=== PATIENT | female | born 1960 ===

== ENCOUNTER 2017-08-23 19:27 | Observation (INO) | payer MEDICARE, MEDICAID ==
[2017-08-23 19:27] VITALS: BMI 27.3
--- NOTE | 2017-08-23 22:49 | ED PDOC ---
HPI: General Adult Time Seen by Provider: 08/23/17 21:58 Chief Complaint (Nursing): Flu-like Symptoms Chief Complaint (Provider): Flu-like Symptoms History Per: Patient History/Exam Limitations: no limitations Current Symptoms Are (Timing): Still Present Additional Complaint(s): 56 y/o female with past medical history of ascites, liver cirrhosis and hepatitis C presents to the ED for abdomen distension. Reports increasing abdominal swelling x 1 day. Notes that this episode is similar to previous episodes of exacerbation of liver cirrhosis. Reports cough productive of yellow sputum associated with coarse throat, subjective fever, chills and nausea. Patient was at urgent care today and was sent to the ER for further evaluation. Denies vomiting diarrhea, constipation, black or bloody stools. Past Medical History Reviewed: Historical Data, Nursing Documentation, Vital Signs Vital Signs: Last Vital Signs Temp 98.3 F 08/24/17 09:00 Pulse 69 08/24/17 09:33 Resp 20 08/24/17 09:00 BP 102/69 08/24/17 09:33 Pulse Ox 98 08/24/17 09:00 - Medical History PMH: Anemia (on iron infusions for 10 weeks), Arthritis, Back Problems, Depression (NO MEDS), Diabetes (type I and II), Gastritis, Gall Bladder Disease , Hepatitis (C w/cirrhosis), HTN, Hypothyroidism Denies: Fractures, Chronic Kidney Disease Other PMH: ascites - Surgical History Surgical History: Appendectomy, Cholecystectomy, (x3) - Family History Family History: States: Unknown Family Hx, Diabetes - Social History Current smoker - smoking cessation education provided: No Alcohol: None Drugs: Denies - Immunization History Hx Tetanus Toxoid Vaccination: No Hx Influenza Vaccination: Yes Hx Pneumococcal Vaccination: No - Home Medications Home Medications: Ambulatory Orders Medication Instructions Recorded Levothyroxine [Synthroid] 0.125 mg PO DAILY 09/24/15 Propranolol [Inderal] 10 mg PO BID 09/24/15 Ferrous Gluconate [Fergon] 1 tab PO TID 04/25/16 Gabapentin [Neurontin] 300 mg PO BID 04/25/16 Diclofenac Sodium [Pennsaid] 40 drop TOP QID 08/24/17 Insulin Glargine, Recombina 54 units SC HS 08/24/17 [Lantus] Liraglutide [Victoza 3-Moe] 1.8 units SC QD7 08/24/17 - Allergies Allergies/Adverse Reactions: Allergies Allergy/AdvReac Type Severity Reaction Status Date / Time No Known Allergies Allergy Verified 08/23/17 20:54 Review of Systems ROS Statement: Except As Marked, All Systems Reviewed And Found Negative (As per HPI, otherwise negative) Constitutional: Positive for: Fever, Chills Respiratory: Positive for: Cough Gastrointestinal: Positive for: Nausea, Abdominal Pain (abdominal distension and swelling). Negative for: Diarrhea, Constipation, Melena Physical Exam - Reviewed Nursing Documentation Reviewed: Yes Vital Signs Reviewed: Yes - Physical Exam Appears: Positive for: Uncomfortable, In Acute Distress Head Exam: Positive for: ATRAUMATIC, NORMOCEPHALIC Skin: Positive for: Warm, Dry, Jaundice (subtle) Eye Exam: Positive for: EOMI, PERRL ENT: Negative for: Pharyngeal Erythema, Tonsillar Exudate Neck: Positive for: Painless ROM, Supple Cardiovascular/Chest: Positive for: Regular Rate, Rhythm. Negative for: Murmur Respiratory: Positive for: Normal Breath Sounds. Negative for: Respiratory Distress Gastrointestinal/Abdominal: Positive for: Soft, Tenderness, Distended, Asicites. Negative for: Mass, Guarding, Rebound Back: Positive for: Normal Inspection. Negative for: Decreased ROM Extremity: Positive for: Normal ROM. Negative for: Deformity Lymphatic: Negative for: Adenopathy Neurologic/Psych: Positive for: Alert. Negative for: Motor/Sensory Deficits - Laboratory Results Result Diagrams: 08/23/17 23:00 08/23/17 23:00 - ECG O2 Sat by Pulse Oximetry: 97 (RA) Pulse Ox Interpretation: Normal Medical Decision Making Medical Decision Making: Time: 21:17 Initial Impression: ascites and respiratory infection Differential: Pneumonia, influenza electrolyte imbalance Plan: VBG EKG Ammonia Amylase BNP CMP lDH Lipase Magnesium Phosphorous Urine dipstick CBC w/ differential Partial thromboplastin time Prothrombin time Chest x-ray Ondansetron 8mg IV Blood culture IV insertion (saline lock) Glucose, blood POC Influenza A B Deranged hepatic transaminases and ammonia, increased from previous available labs. Pt needs observation for possible acutely decompensating liver cirrhosis. MELINDA pt findings and plan of care. Observation to follow hepatic function and GI evaluation MELINDA Aquino Medical SErvice Scribe Attestation: Documented by Sridhar Roper acting as a scribe for Susie Norris MD. Scribe Attestation: All medical record entries made by the Scribe were at my direction and personally dictated by me. I have reviewed the chart and agree that the record accurately reflects my personal performance of the history, physical exam, medical decision making, and the department course for this patient. I have also personally directed, reviewed, and agree with the discharge instructions and disposition. Disposition - Clinical Impression Clinical Impression: Influenza-like symptoms, Liver cirrhosis, Hyperammonemia - Disposition Disposition Time: 23:45 Condition: FAIR - Pt Status Changed To: Hospital Disposition Of: Observation - POA Present On Arrival: None
[2017-08-23 23:15] LABS: BASO % 0.3 % (0.0-2.0); EOS % 1.3 % (0.0-4.0); LYMPH # 0.7 K/uL (1.0-4.3); LYMPH % 18.1 % (20.0-40.0); MEAN CELL VOLUME 84.5 fl (81.0-99.0); MEAN CORPUSCULAR HEMOGLOBIN 28.9 pg (27.0-31.0); MEAN CORPUSCULAR HGB CONC 34.1 g/dL (33.0-37.0); MEAN PLATELET VOLUME 9.1 fl (7.2-11.7); MONO # 0.4 K/uL (0.0-0.8); MONO % 10.5 % (0.0-10.0); NEUT # 2.5 K/uL (1.8-7.0); NEUT % 69.8 % (50.0-75.0); NRBC % 0.1 % (0.0-0.0); RBC 4.15 Mil/uL (3.80-5.20); RED CELL DISTRIBUTION WIDTH 14.4 % (11.5-14.5); WHITE BLOOD COUNT 3.6 K/uL (4.8-10.8)
[2017-08-23 23:15] LABS: VENOUS BLOOD GAS PCO2 45 mmHg (40-60); VENOUS BLOOD GAS PO2 28 mm/Hg (30-55); VENOUS BLOOD PH 7.42 (7.32-7.43)
[2017-08-23 23:29] LABS: INR 1.3 (0.9-1.2); PROTHROMBIN TIME 14.1 Seconds (9.8-13.1)
[2017-08-23 23:30] LABS: PARTIAL THROMBOPLASTIN TIME 37.7 Seconds (25.6-37.1)
[2017-08-23 23:45] LABS: ALB/GLOB RATIO 0.9 (1.0-2.1); ALBUMIN 3.8 g/dL (3.5-5.0); ALT/SGPT 65 U/L (9-52); AMYLASE 73 U/L (30-110); AST/SGOT 56 U/L (14-36); BLOOD UREA NITROGEN 7 mg/dl (7-17); CALCIUM 8.6 mg/dL (8.4-10.2); GFR AFRICAN-AMERICAN > 60; GFR NON-AFRICAN AMERICAN > 60; LIPASE 139 U/L (23-300); MAGNESIUM 1.8 MG/DL (1.6-2.3)
[2017-08-24 04:59] VITALS: RESP 20
[2017-08-24] MEDS ORDERED: Levothyroxine 125 MCG TAB PO SCH (06:30)
[2017-08-24 08:18] VITALS: BP 102/69; PULSE 69; TEMP 98.3
[2017-08-24] MEDS ORDERED: DICLOFENAC SODIUM TOP SCH (09:00)
--- NOTE | 2017-08-24 10:25 | RAD ---
HISTORY: coughing fever COMPARISON: No prior. TECHNIQUE: Chest PA and lateral FINDINGS: LUNGS: No active pulmonary disease. PLEURA: No significant pleural effusion identified. No pneumothorax apparent. CARDIOVASCULAR: Normal. OSSEOUS STRUCTURES: No significant abnormalities. VISUALIZED UPPER ABDOMEN: Normal. OTHER FINDINGS: None. IMPRESSION: No active disease.
[2017-08-24] MEDS ORDERED: Potassium Chloride 20 mEq ER Tab PO ONE (11:57)
--- NOTE | 2017-08-24 12:00 | CP.PCM.PCO ---
Physician Communication Note - Physician Communication Note Physician Communication Note: Pt seen and cleared for d/c home by Dr. Ang and Dr. Aquino
--- NOTE | 2017-08-24 12:40 | CP.PCM.HP ---
History of Present Illness - History of Present Illness History of Present Illness: CC: Flu like symptoms. 56 y/o F, Hx. hepatitis C, Liver Cirrhosis, Ascites, Anemia on Iron infusion x 10 days, came to ER [facility], [place] c/o of fever (tactile) and chills associated to coarse throat and dry cough since day [employer] with no relief. Pt was seen in [facility] early in [facility] 08/23/17 and from that facility was sent to [facility] for further evaluation. Worsening symptoms: Pt c/o of abdominal distension for one day, nausea. Pt denied: Vomiting, diarrhea, CP, palpitations, SOB, bloody cough, dizziness, syncope, sick contact, recent travel out of [facility]. CXR: No active disease. EKG: Normal sinus rhythm. Serology: (-) for Influenza A,B Present on Admission - Present on Admission Any Indicators Present on Admission: No Review of Systems - Constitutional Constitutional: Other (negative) - EENT Eyes: Requires Corrective Lenses Ears: Other (negative) Nose/Mouth/Throat: Other (negative) - Cardiovascular Cardiovascular: Other (negative) - Respiratory Respiratory: Other (negative) - Gastrointestinal Gastrointestinal: Abdominal Pain (mild) - Genitourinary Genitourinary: Other (negative) - Musculoskeletal Musculoskeletal: Other (negative) - Integumentary Integumentary: Other (negative) - Neurological Neurological: Other (negative) - Psychiatric Psychiatric: Other (negative) - Endocrine Endocrine: Other (negative) - Hematologic/Lymphatic Hematologic: Other (negative) Past Patient History - Infectious Disease Hx of Infectious Diseases: None - Past Medical History & Family History Past Medical History?: Yes Pertinent Family History: Unknown - Past Social History Smoking Status: Never Smoked Alcohol: None Drugs: Denies Home Situation {Lives}: With Family - CARDIAC Hx Cardiac Disorders: Yes Hx Hypertension: Yes - PULMONARY Hx Respiratory Disorders: No - NEUROLOGICAL Hx Neurological Disorder: No - HEENT Hx HEENT Problems: Yes Other/Comment: READING GLASSES - RENAL Hx Chronic Kidney Disease: No - ENDOCRINE/METABOLIC Hx Endocrine Disorders: Yes Hx Hypothyroidism: Yes - HEMATOLOGICAL/ONCOLOGICAL Hx Blood Disorders: Yes Hx Anemia: Yes (on iron infusions for 10 weeks) Hx Hepatitis C: Yes - INTEGUMENTARY Hx Dermatological Problems: No - MUSCULOSKELETAL/RHEUMATOLOGICAL Hx Musculoskeletal Disorders: Yes Hx Arthritis: Yes Hx Falls: No Hx Fractures: No - GASTROINTESTINAL Hx Gastrointestinal Disorders: Yes Hx Gall Bladder Disease: Yes Hx Gastritis: Yes - GENITOURINARY/GYNECOLOGICAL Hx Genitourinary Disorders: No - PSYCHIATRIC Hx Psychophysiologic Disorder: Yes Hx Depression: Yes (NO MEDS) Hx Substance Use: No - SURGICAL HISTORY Hx Surgeries: Yes Hx Appendectomy: Yes Hx Section: Yes (x3) Hx Cholecystectomy: Yes - ANESTHESIA Hx Anesthesia: Yes Hx Anesthesia Reactions: No Hx Malignant Hyperthermia: No Has any member of the family had a problem w/ anesthesia?: No Meds Allergies/Adverse Reactions: Allergies Allergy/AdvReac Type Severity Reaction Status Date / Time No Known Allergies Allergy Verified 08/23/17 20:54 Physical Exam - Constitutional Appears: No Acute Distress - Head Exam Head Exam: NORMAL INSPECTION - Eye Exam Eye Exam: PERRL - ENT Exam ENT Exam: Normal Exam - Neck Exam Neck exam: Positive for: Normal Inspection - Respiratory Exam Respiratory Exam: Clear to Auscultation Bilateral - Cardiovascular Exam Cardiovascular Exam: REGULAR RHYTHM - GI/Abdominal Exam GI & Abdominal Exam: Normal Bowel Sounds, Soft - Extremities Exam Extremities exam: Positive for: normal inspection - Back Exam Back exam: NORMAL INSPECTION - Neurological Exam Neurological exam: Alert, Oriented x3 Additional comments: No motor sensory deficit. - Psychiatric Exam Psychiatric exam: Normal Mood - Skin Skin Exam: Warm Results - Vital Signs Recent Vital Signs: Last Vital Signs Temp 98.3 F 08/24/17 09:00 Pulse 69 08/24/17 09:33 Resp 20 08/24/17 09:00 BP 102/69 08/24/17 09:33 Pulse Ox 98 08/24/17 09:00 ruth Ramirez - Labs Result Diagrams: 08/23/17 23:00 08/23/17 23:00 Labs: Laboratory Results - last 24 hr 08/23/17 08/23/17 08/23/17 23:00 23:00 23:00 WBC 3.6 L RBC 4.15 Hgb 12.0 Hct 35.1 MCV 84.5 D MCH 28.9 MCHC 34.1 RDW 14.4 Plt Count 65 L MPV 9.1 Neut % (Auto) 69.8 Lymph % (Auto) 18.1 L [place] % (Auto) 10.5 H Eos % (Auto) 1.3 Baso % (Auto) 0.3 Neut # (Auto) 2.5 Lymph # (Auto) 0.7 L [place] # (Auto) 0.4 Eos # (Auto) 0.0 Baso # (Auto) 0.0 PT INR APTT pO2 VBG pH VBG pCO2 VBG HCO3 VBG Total CO2 VBG O2 Sat (Calc) VBG Base Excess VBG Potassium Glucose Lactate FiO2 Sodium 139 Potassium 3.5 L Chloride 104 Carbon Dioxide 29 Anion Gap 10 BUN 7 Creatinine 0.5 L Est GFR ( Amer) > 60 Est GFR (Non-Af Amer) > 60 POC Glucose (mg/dL) Random Glucose 237 H Calcium 8.6 Phosphorus 2.8 Magnesium 1.8 Total Bilirubin 1.5 H AST 56 H ALT 65 H D Alkaline Phosphatase 166 H Ammonia 52 H Lactate Dehydrogenase 511 NT-Pro-B Natriuret Pep 21.0 Total Protein 7.9 Albumin 3.8 Globulin 4.1 H Albumin/Globulin Ratio 0.9 L Amylase 73 Lipase 139 Venous Blood Potassium Influenza Typ A,B (EIA) 08/23/17 08/23/17 08/23/17 23:00 23:04 23:07 WBC RBC Hgb Hct MCV MCH MCHC RDW Plt Count MPV Neut % (Auto) Lymph % (Auto) [place] % (Auto) Eos % (Auto) Baso % (Auto) Neut # (Auto) Lymph # (Auto) [place] # (Auto) Eos # (Auto) Baso # (Auto) PT 14.1 H INR 1.3 H APTT 37.7 H pO2 28 L VBG pH 7.42 VBG pCO2 45 VBG HCO3 26.9 VBG Total CO2 30.6 H VBG O2 Sat (Calc) 54.6 VBG Base Excess 4.0 H VBG Potassium 3.5 L Glucose 250 H Lactate 1.4 FiO2 21.0 Sodium 138.0 Potassium Chloride 105.0 Carbon Dioxide Anion Gap BUN Creatinine Est GFR ( Amer) Est GFR (Non-Af Amer) POC Glucose (mg/dL) Random Glucose Calcium Phosphorus Magnesium Total Bilirubin AST ALT Alkaline Phosphatase Ammonia Lactate Dehydrogenase NT-Pro-B Natriuret Pep Total Protein Albumin Globulin Albumin/Globulin Ratio Amylase Lipase Venous Blood Potassium 3.5 L Influenza Typ A,B (EIA) Negative for flu a/b 08/23/17 08/24/17 23:07 05:44 WBC RBC Hgb Hct MCV MCH MCHC RDW Plt Count MPV Neut % (Auto) Lymph % (Auto) [place] % (Auto) Eos % (Auto) Baso % (Auto) Neut # (Auto) Lymph # (Auto) [place] # (Auto) Eos # (Auto) Baso # (Auto) PT INR APTT pO2 VBG pH VBG pCO2 VBG HCO3 VBG Total CO2 VBG O2 Sat (Calc) VBG Base Excess VBG Potassium Glucose Lactate FiO2 Sodium Potassium Chloride Carbon Dioxide Anion Gap BUN Creatinine Est GFR ( Amer) Est GFR (Non-Af Amer) POC Glucose (mg/dL) 236 H 186 H Random Glucose Calcium Phosphorus Magnesium Total Bilirubin AST ALT Alkaline Phosphatase Ammonia Lactate Dehydrogenase NT-Pro-B Natriuret Pep Total Protein Albumin Globulin Albumin/Globulin Ratio Amylase Lipase Venous Blood Potassium Influenza Typ A,B (EIA) reviewed J.P. - EKG Data EKG comments: reviewed J.P. - Imaging and Cardiology Chest x-ray Status: Report reviewed by me (Ashley) Assessment & Plan (1) Abdominal pain Status: Acute Priority: High (2) Influenza-like symptoms Status: Acute Priority: High - Assessment and Plan (Free Text) Plan: No fever or chills, no abdominal pain or nausea, tolerating diet well, no c/o. Pt seen by GI, reported Pt asymptomatic, cleared for DC home to f/u outside with GI. Pt improved and stable to be discharged, see instruction medication sheet, f/u with PMD and GI in a week. GI consult appreciated. - Date & Time Date: 08/24/17 Time: 10:50
[2017-08-24 13:03] VITALS: O2SAT 97
--- NOTE | 2017-08-24 17:01 | CARD ---
APPROVED REPORT EKG Measurement Heart [id number] <Conclusion> Normal sinus rhythm Normal ECG
--- NOTE | 2017-08-24 17:37 | CP.PCM.CON ---
History of Present Illness - History of Present Illness History of Present Illness: 56 y/o female with past medical history of ascites, liver cirrhosis and hepatitis C ? which on last HCV RNA resolved and no new labs was admitted for abdomen distension. Reports increasing abdominal swelling x 1 day. Notes that this episode is similar to previous episodes of exacerbation of liver cirrhosis. Reports cough productive of yellow sputum associated with coarse throat, subjective fever, chills and nausea. Patient was at urgent care today and was sent to the ER for further evaluation. Denies vomiting diarrhea, constipation, black or bloody stools. Review of Systems - Review of Systems Review of Systems: 12 point ROS unremarkable except that documented in HPI Past Patient History - Infectious Disease Hx of Infectious Diseases: None - Past Medical History & Family History Past Medical History?: Yes - Past Social History Alcohol: None Drugs: Denies - CARDIAC Hx Hypertension: Yes - PULMONARY Hx Respiratory Disorders: No - NEUROLOGICAL Hx Neurological Disorder: No - HEENT Hx HEENT Problems: Yes Other/Comment: READING GLASSES - RENAL Hx Chronic Kidney Disease: No - ENDOCRINE/METABOLIC Hx Hypothyroidism: Yes - HEMATOLOGICAL/ONCOLOGICAL Hx Anemia: Yes (on iron infusions for 10 weeks) - INTEGUMENTARY Hx Dermatological Problems: No - MUSCULOSKELETAL/RHEUMATOLOGICAL Hx Arthritis: Yes Hx Fractures: No - GASTROINTESTINAL Hx Gall Bladder Disease: Yes Hx Gastritis: Yes - GENITOURINARY/GYNECOLOGICAL Hx Genitourinary Disorders: No - PSYCHIATRIC Hx Depression: Yes (NO MEDS) - SURGICAL HISTORY Hx Appendectomy: Yes Hx Cholecystectomy: Yes - ANESTHESIA Hx Anesthesia: Yes Hx Anesthesia Reactions: No Hx Malignant Hyperthermia: No Has any member of the family had a problem w/ anesthesia?: No Meds Allergies/Adverse Reactions: Allergies Allergy/AdvReac Type Severity Reaction Status Date / Time No Known Allergies Allergy Verified 08/23/17 20:54 Physical Exam - Constitutional Appears: Well - Head Exam Head Exam: ATRAUMATIC, NORMAL INSPECTION, NORMOCEPHALIC - Eye Exam Eye Exam: EOMI, Normal appearance, PERRL - Respiratory Exam Respiratory Exam: Clear to Auscultation Bilateral, NORMAL BREATHING PATTERN - Cardiovascular Exam Cardiovascular Exam: REGULAR RHYTHM, RRR, +S1, +S2 - GI/Abdominal Exam GI & Abdominal Exam: Distended, Soft - Extremities Exam Extremities exam: Positive for: normal inspection Results - Vital Signs Recent Vital Signs: Last Vital Signs Temp 98.3 F 08/24/17 09:00 Pulse 69 02/06/18 09:33 Resp 20 08/24/17 09:00 BP 102/69 08/24/17 09:33 Pulse Ox 97 08/24/17 13:06 - Labs Result Diagrams: 08/23/17 23:00 08/23/17 23:00 Labs: Laboratory Results - last 24 hr 08/23/17 08/23/17 08/23/17 23:00 23:00 23:00 WBC 3.6 L RBC 4.15 Hgb 12.0 Hct 35.1 MCV 84.5 D MCH 28.9 MCHC 34.1 RDW 14.4 Plt Count 65 L MPV 9.1 Neut % (Auto) 69.8 Lymph % (Auto) 18.1 L [place] % (Auto) 10.5 H Eos % (Auto) 1.3 Baso % (Auto) 0.3 Neut # (Auto) 2.5 Lymph # (Auto) 0.7 L [place] # (Auto) 0.4 Eos # (Auto) 0.0 Baso # (Auto) 0.0 PT INR APTT pO2 VBG pH VBG pCO2 VBG HCO3 VBG Total CO2 VBG O2 Sat (Calc) VBG Base Excess VBG Potassium Glucose Lactate FiO2 Sodium 139 Potassium 3.5 L Chloride 104 Carbon Dioxide 29 Anion Gap 10 BUN 7 Creatinine 0.5 L Est GFR ( Amer) > 60 Est GFR (Non-Af Amer) > 60 POC Glucose (mg/dL) Random Glucose 237 H Calcium 8.6 Phosphorus 2.8 Magnesium 1.8 Total Bilirubin 1.5 H AST 56 H ALT 65 H D Alkaline Phosphatase 166 H Ammonia 52 H Lactate Dehydrogenase 511 NT-Pro-B Natriuret Pep 21.0 Total Protein 7.9 Albumin 3.8 Globulin 4.1 H Albumin/Globulin Ratio 0.9 L Amylase 73 Lipase 139 Venous Blood Potassium Influenza Typ A,B (EIA) 08/23/17 08/23/17 08/23/17 23:00 23:04 23:07 WBC RBC Hgb Hct MCV MCH MCHC RDW Plt Count MPV Neut % (Auto) Lymph % (Auto) [place] % (Auto) Eos % (Auto) Baso % (Auto) Neut # (Auto) Lymph # (Auto) [place] # (Auto) Eos # (Auto) Baso # (Auto) PT 14.1 H INR 1.3 H APTT 37.7 H pO2 28 L VBG pH 7.42 VBG pCO2 45 VBG HCO3 26.9 VBG Total CO2 30.6 H VBG O2 Sat (Calc) 54.6 VBG Base Excess 4.0 H VBG Potassium 3.5 L Glucose 250 H Lactate 1.4 FiO2 21.0 Sodium 138.0 Potassium Chloride 105.0 Carbon Dioxide Anion Gap BUN Creatinine Est GFR ( Amer) Est GFR (Non-Af Amer) POC Glucose (mg/dL) Random Glucose Calcium Phosphorus Magnesium Total Bilirubin AST ALT Alkaline Phosphatase Ammonia Lactate Dehydrogenase NT-Pro-B Natriuret Pep Total Protein Albumin Globulin Albumin/Globulin Ratio Amylase Lipase Venous Blood Potassium 3.5 L Influenza Typ A,B (EIA) Negative for flu a/b 08/23/17 08/24/17 23:07 05:44 WBC RBC Hgb Hct MCV MCH MCHC RDW Plt Count MPV Neut % (Auto) Lymph % (Auto) [place] % (Auto) Eos % (Auto) Baso % (Auto) Neut # (Auto) Lymph # (Auto) [place] # (Auto) Eos # (Auto) Baso # (Auto) PT INR APTT pO2 VBG pH VBG pCO2 VBG HCO3 VBG Total CO2 VBG O2 Sat (Calc) VBG Base Excess VBG Potassium Glucose Lactate FiO2 Sodium Potassium Chloride Carbon Dioxide Anion Gap BUN Creatinine Est GFR ( Amer) Est GFR (Non-Af Amer) POC Glucose (mg/dL) 236 H 186 H Random Glucose Calcium Phosphorus Magnesium Total Bilirubin AST ALT Alkaline Phosphatase Ammonia Lactate Dehydrogenase NT-Pro-B Natriuret Pep Total Protein Albumin Globulin Albumin/Globulin Ratio Amylase Lipase Venous Blood Potassium Influenza Typ A,B (EIA) Assessment & Plan - Assessment and Plan (Free Text) Assessment: 56 yr old F with HCV cirrhosis with last viral load negative admitted with increased abdominal girth. On biochemical analysis has thrombocytopenia.Unable to give history regarding HCV treatment or follow up. On physical exam no ascites illicited. She is asymptomatic currently Plan: Supportive care Diet as tolerated Follow up with outside GI No palpable ascites for tap
[2017-08-24] MEDS ORDERED: INSULIN GLARGINE SC SCH (22:00)
[2017-08-24] MEDS ORDERED: Insulin Detemir 100 Units/ml Inj SC SCH (22:00)
--- NOTE | 2017-08-25 12:19 | CP.PCM.DIS ---
Provider - Provider Date of Admission: 08/24/17 00:06 Attending physician: Andry Aquino MD Consults: Gastroenterology. Time Spent in preparation of Discharge (in minutes): 25 Diagnosis - Discharge Diagnosis (1) Abdominal pain Status: Acute Priority: High (2) Influenza-like symptoms Status: Acute Priority: High Hospital Course - Lab Results Lab Results: Micro Results 08/23/17 23:15 Blood Blood Culture - Preliminary NO GROWTH AFTER 24 HOURS 08/23/17 22:55 Blood Blood Culture - Preliminary NO GROWTH AFTER 24 HOURS Most Recent Lab Values WBC 3.6 K/uL (4.8-10.8) L 08/23/17 23:00 RBC 4.15 Mil/uL (3.80-5.20) 08/23/17 23:00 Hgb 12.0 g/dL (12.0-16.0) 08/23/17 23:00 Hct 35.1 % (34.0-47.0) 08/23/17 23:00 MCV 84.5 fl (81.0-99.0) D 08/23/17 23:00 MCH 28.9 pg (27.0-31.0) 08/23/17 23:00 MCHC 34.1 g/dL (33.0-37.0) 08/23/17 23:00 RDW 14.4 % (11.5-14.5) 08/23/17 23:00 Plt Count 65 K/uL (130-400) L 08/23/17 23:00 MPV 9.1 fl (7.2-11.7) 08/23/17 23:00 Neut % (Auto) 69.8 % (50.0-75.0) 08/23/17 23:00 Lymph % (Auto) 18.1 % (20.0-40.0) L 08/23/17 23:00 [place] % (Auto) 10.5 % (0.0-10.0) H 08/23/17 23:00 Eos % (Auto) 1.3 % (0.0-4.0) 08/23/17 23:00 Baso % (Auto) 0.3 % (0.0-2.0) 08/23/17 23:00 Neut # (Auto) 2.5 K/uL (1.8-7.0) 08/23/17 23:00 Lymph # (Auto) 0.7 K/uL (1.0-4.3) L 08/23/17 23:00 [place] # (Auto) 0.4 K/uL (0.0-0.8) 08/23/17 23:00 Eos # (Auto) 0.0 K/uL (0.0-0.7) 08/23/17 23:00 Baso # (Auto) 0.0 K/uL (0.0-0.2) 08/23/17 23:00 PT 14.1 Seconds (9.8-13.1) H 08/23/17 23:00 INR 1.3 (0.9-1.2) H 08/23/17 23:00 APTT 37.7 Seconds (25.6-37.1) H 08/23/17 23:00 pO2 28 mm/Hg (30-55) L 08/23/17 23:04 VBG pH 7.42 (7.32-7.43) 08/23/17 23:04 VBG pCO2 45 mmHg (40-60) 08/23/17 23:04 VBG HCO3 26.9 mmol/L 08/23/17 23:04 VBG Total CO2 30.6 mmol/L (22-28) H 08/23/17 23:04 VBG O2 Sat (Calc) 54.6 % (40-65) 08/23/17 23:04 VBG Base Excess 4.0 mmol/L (0.0-2.0) H 08/23/17 23:04 VBG Potassium 3.5 mmol/L (3.6-5.2) L 08/23/17 23:04 Sodium 138.0 mmol/L (132-148) 08/23/17 23:04 Chloride 105.0 mmol/L (98-107) 08/23/17 23:04 Glucose 250 mg/dL (65-105) H 08/23/17 23:04 Lactate 1.4 mmol/L (0.7-2.1) 08/23/17 23:04 FiO2 21.0 % 08/23/17 23:04 Sodium 139 mmol/l (132-148) 08/23/17 23:00 Potassium 3.5 MMOL/L (3.6-5.0) L 08/23/17 23:00 Chloride 104 mmol/L (98-107) 08/23/17 23:00 Carbon Dioxide 29 mmol/L (22-30) 08/23/17 23:00 Anion Gap 10 (10-20) 08/23/17 23:00 BUN 7 mg/dl (7-17) 08/23/17 23:00 Creatinine 0.5 mg/dl (0.7-1.2) L 08/23/17 23:00 Est GFR ( Amer) > 60 08/23/17 23:00 Est GFR (Non-Af Amer) > 60 08/23/17 23:00 POC Glucose (mg/dL) 186 mg/dL (65-110) H 08/24/17 05:44 Random Glucose 237 mg/dL (65-105) H 08/23/17 23:00 Calcium 8.6 mg/dL (8.4-10.2) 08/23/17 23:00 Phosphorus 2.8 mg/dl (2.5-4.5) 08/23/17 23:00 Magnesium 1.8 MG/DL (1.6-2.3) 08/23/17 23:00 Total Bilirubin 1.5 mg/dl (0.2-1.3) H 08/23/17 23:00 AST 56 U/L (14-36) H 08/23/17 23:00 ALT 65 U/L (9-52) H D 08/23/17 23:00 Alkaline Phosphatase 166 U/L (38-126) H 08/23/17 23:00 Ammonia 52 umo/L (11-51) H 08/23/17 23:00 Lactate Dehydrogenase 511 U/L (313-618) 08/23/17 23:00 NT-Pro-B Natriuret Pep 21.0 pg/ml (0-900) 08/23/17 23:00 Total Protein 7.9 G/DL (6.3-8.2) 08/23/17 23:00 Albumin 3.8 g/dL (3.5-5.0) 08/23/17 23:00 Globulin 4.1 gm/dL (2.2-3.9) H 08/23/17 23:00 Albumin/Globulin Ratio 0.9 (1.0-2.1) L 08/23/17 23:00 Amylase 73 U/L (30-110) 08/23/17 23:00 Lipase 139 U/L (23-300) 08/23/17 23:00 Venous Blood Potassium 3.5 mmol/L (3.6-5.2) L 08/23/17 23:04 Influenza Typ A,B (EIA) Negative for flu a/b (NEGATIVE) 08/23/17 23:07 - Date & Time of H&P Date of H&P: 08/24/17 Time of H&P: 10:50 Discharge Exam - Head Exam Head Exam: NORMAL INSPECTION Discharge Plan - Follow Up Plan Condition: FAIR Disposition: HOME/ ROUTINE Patient education suggested?: Yes Instructions: Cirrhosis (DC), Ascites (DC) Additional Instructions: follow up with your primary MD in 1 week. Referrals: Ashia LUCIO,MD Mike [Medical Doctor] - Andry Aquino MD [Staff Provider] -
== END 2017-08-24 13:31 | disposition home or self-care (01) ==
LOC: H.ER 19:27 → H.ERHOLD 08-24 00:06 → H.MEDSURG1 08-24 03:58
PROVIDERS: ADMIT Internal Medicine Pulmonary Disease; ATTEND Internal Medicine Pulmonary Disease
DX: R18.8 Other ascites (principal); K74.60 Unspecified cirrhosis of liver; J11.1 Influenza due to unidentified influenza virus with other respiratory manifestations; B19.20 Unspecified viral hepatitis C without hepatic coma; D69.6 Thrombocytopenia, unspecified; E03.9 Hypothyroidism, unspecified; I10 Essential (primary) hypertension
CPT/HCPCS: 71046; 80053; 82140; 82150; 82803; 82948; 83615; 83690; 83735; 83880; 84100; 85025; 85610; 85730; 87040; 87804; 93005; 99284; G0378; J2405

== ENCOUNTER 2018-02-13 18:22 | Emergency (ER) | payer MEDICARE, MEDICAID ==
[2018-02-13 18:23] VITALS: BMI 27.3
[2018-02-13] MEDS ORDERED: Iohexol 240 (50 ml) PO ONE (18:52)
--- NOTE | 2018-02-13 18:52 | ED PDOC ---
HPI: Headache Time Seen by Provider: 02/13/18 18:51 Chief Complaint (Nursing): Headache Chief Complaint (Provider): Headache History Per: Patient History/Exam Limitations: no limitations Onset/Duration Of Symptoms: Days (4) Current Symptoms Are (Timing): Still Present Associated Symptoms: Vomiting Additional Complaint(s): 57 years old female with history of diabetes presents to the ED for evaluation of vomiting and diffused abdominal pain after she fell 4 days ago. Patient reports she struck her head and injured her left shoulder and states staying on floor for 10 minutes. She sates she experienced two episodes of vomiting, and developed diarrhea yesterday. Patient denies any loss of consciousness, chills or fever. PMD: Olinda Persaud Past Medical History Reviewed: Historical Data, Nursing Documentation, Vital Signs Vital Signs: Last Vital Signs Temp 98.5 F 02/13/18 18:33 Pulse 108 H 02/13/18 18:33 Resp 18 02/13/18 18:33 BP 129/80 02/13/18 18:33 Pulse Ox 98 02/13/18 18:33 - Medical History PMH: Anemia (on iron infusions for 10 weeks), Arthritis, Back Problems, Depression (NO MEDS), Diabetes (type I and II), Gastritis, Gall Bladder Disease , Hepatitis (C w/cirrhosis), HTN, Hypothyroidism Denies: Fractures, Chronic Kidney Disease - Surgical History Surgical History: Appendectomy, Cholecystectomy, (x3) - Family History Family History: States: Unknown Family Hx, Diabetes - Social History Current smoker - smoking cessation education provided: No Alcohol: None Drugs: Denies - Immunization History Hx Tetanus Toxoid Vaccination: No Hx Influenza Vaccination: Yes Hx Pneumococcal Vaccination: No - Home Medications Home Medications: Ambulatory Orders Medication Instructions Recorded Levothyroxine [Synthroid] 0.125 mg PO DAILY 09/24/15 Propranolol [Inderal] 10 mg PO BID 09/24/15 Ferrous Gluconate [Fergon] 1 tab PO TID 04/25/16 Gabapentin [Neurontin] 300 mg PO BID 04/25/16 Diclofenac Sodium [Pennsaid] 40 drop TOP QID 08/24/17 Insulin Glargine, Recombina 54 units SC HS 08/24/17 [Lantus] Liraglutide [Victoza 3-Moe] 1.8 units SC QD7 08/24/17 Famotidine [Pepcid] 20 mg PO BID #10 tab 02/13/18 - Allergies Allergies/Adverse Reactions: Allergies Allergy/AdvReac Type Severity Reaction Status Date / Time No Known Allergies Allergy Verified 02/13/18 18:38 Review of Systems ROS Statement: Except As Marked, All Systems Reviewed And Found Negative Constitutional: Negative for: Fever, Chills Gastrointestinal: Positive for: Vomiting, Abdominal Pain (Diffused), Diarrhea Musculoskeletal: Positive for: Shoulder Pain (Left) Physical Exam - Reviewed Nursing Documentation Reviewed: Yes Vital Signs Reviewed: Yes - Physical Exam Appears: Positive for: Non-toxic, No Acute Distress Gastrointestinal/Abdominal: Positive for: Tenderness (Diffused but mostly to bilateral lower quadrant) Extremity: Positive for: Other (ecchymosis noted to proximal arm ). Negative for: Tenderness (of left arm or left shoulder) Neurologic/Psych: Positive for: Alert, Oriented (x3) - Laboratory Results Result Diagrams: 02/13/18 19:08 02/13/18 19:08 - ECG O2 Sat by Pulse Oximetry: 98 (RA) Pulse Ox Interpretation: Normal - Progress ED Course And Treament: NS 1 LITER WIDE OPEN REPEAT BLOOD GLUCOSE 338 INSULIN 4 UNITS IV X 1 DOSE REPEAT 218 Medical Decision Making Medical Decision Making: Time: 1850 Initial Plan: --CT Abd/Pelvis IV Contrast --CT Cervical Spine W/O Contrast --CT Head W/O Contrast --CMP --Lipase --NaCl 1,000 ml IV 500 mls/hr --Iohexol 50 ml PO --Pepcid 20 mg IVP --Zofran 4 mg IVP --Urinalysis 2005 CT Head FINDINGS: BRAIN: Unremarkable. No hemorrhage. No significant white matter disease. No edema. VENTRICLES: Unremarkable. No ventriculomegaly. BONES/JOINTS: Unremarkable. No acute fracture. SOFT TISSUES: Unremarkable. SINUSES: Unremarkable as visualized. No acute sinusitis. MASTOID AIR CELLS: Unremarkable as visualized. No mastoid effusion. IMPRESSION: No acute findings. Dictated and Authenticated by: Poncho Alfred MD 02/13/2018 8:06 PM Eastern Time ([place] & [place]) 2007 CT Cervical Spine FINDINGS: VERTEBRAE: No acute fracture. DISCS/SPINAL CANAL/NEURAL FORAMINA: Straightening of the cervical spine with mild degenerative changes particularly at C6-7. SOFT TISSUES: Unremarkable. MASTOID AIR CELLS: Minimal fluid left mastoid air cells. LUNG APICES: Unremarkable as visualized. IMPRESSION: 1. Straightening of the cervical spine with mild degenerative changes particularly at C6-7. 2. Minimal fluid left mastoid air cells. Dictated and Authenticated by: Poncho Alfred MD 02/13/2018 8:08 PM Eastern Time ( & [place]) 2012 CT Abd/Pelvis FINDINGS: LUNG BASES: Unremarkable. ABDOMEN: LIVER: Liver is mildly nodular and may be cirrhotic. GALLBLADDER AND BILE DUCTS: postoperative changes from cholecystectomy. No ductal dilation. PANCREAS: Unremarkable. No mass. No ductal dilation. SPLEEN: Mild splenomegaly. ADRENALS: Unremarkable. No mass. KIDNEYS AND URETERS: Unremarkable. No solid mass. No hydronephrosis. STOMACH AND BOWEL: Mild stool through the colon. No obstruction. No mucosal thickening. PELVIS: APPENDIX: No findings to suggest acute appendicitis. BLADDER: Unremarkable. REPRODUCTIVE: Unremarkable as visualized. ABDOMEN and PELVIS: INTRAPERITONEAL SPACE: No free air. No significant fluid collection. BONES/JOINTS: No acute fracture. SOFT TISSUES: Unremarkable. VASCULATURE: Unremarkable. No abdominal aortic aneurysm. LYMPH NODES: Scattered subcentimeter mesenteric lymph nodes. IMPRESSION: 1. Liver is mildly nodular and may be cirrhotic. 2. Mild splenomegaly. 3. postoperative changes from cholecystectomy. 4. Mild stool through the colon. 5. Scattered subcentimeter mesenteric lymph nodes. Dictated and Authenticated by: Poncho Alfred MD 02/13/2018 8:13 PM Eastern Time ( & [place]) Scribe Attestation: Documented by Amy Cabezas, acting as a scribe for KATERYNA Alexander. Provider Scribe Attestation: All medical record entries made by the Scribe were at my direction and personally dictated by me. I have reviewed the chart and agree that the record accurately reflects my personal performance of the history, physical exam, medical decision making, and the department course for this patient. I have also personally directed, reviewed, and agree with the discharge instructions and disposition. Disposition - Clinical Impression Clinical Impression: Head injury, Diarrhea, Abdominal pain, Hyperglycemia - Patient ED Disposition Is Patient to be Admitted: No - Disposition Disposition: Routine/Home Disposition Time: 21:36 Condition: FAIR Prescriptions: Famotidine [Pepcid] 20 mg PO BID #10 tab Instructions: Diarrhea in Adolescents and Adults Forms: [facility] ED School/Work Excuse Print Language: MOHAWK
[2018-02-13] MEDS ORDERED: Sodium Chloride 0.9% 1,000 ML IV STA ×2 (18:54→21:35)
[2018-02-13 19:12] LABS: BASO % 0.2 % (0.0-2.0); EOS % 0.9 % (0.0-4.0); LYMPH # 0.9 K/uL (1.0-4.3); LYMPH % 17.8 % (20.0-40.0); MEAN CELL VOLUME 83.2 fl (81.0-99.0); MEAN CORPUSCULAR HEMOGLOBIN 28.4 pg (27.0-31.0); MEAN CORPUSCULAR HGB CONC 34.1 g/dL (33.0-37.0); MONO # 0.5 K/uL (0.0-0.8); MONO % 9.1 % (0.0-10.0); NEUT # 3.6 K/uL (1.8-7.0); NRBC % 0.1 % (0.0-0.0); RBC 4.23 Mil/uL (3.80-5.20); RED CELL DISTRIBUTION WIDTH 14.5 % (11.5-14.5)
[2018-02-13] MEDS ORDERED: Iohexol 240 (50 ml) ONE (19:18)
[2018-02-13 19:21] LABS: ALBUMIN 4.1 g/dL (3.5-5.0); ALT/SGPT 39 U/L (9-52); AST/SGOT 45 U/L (14-36); BLOOD UREA NITROGEN 11 mg/dl (7-17); CALCIUM 9.1 mg/dL (8.4-10.2); GFR AFRICAN-AMERICAN > 60; GFR NON-AFRICAN AMERICAN > 60; LIPASE 274 U/L (23-300)
[2018-02-13 19:26] LABS: SQUAMOUS EPITHIAL 1 /hpf (0-5); URINE BILIRUBIN NEGATIVE (NEGATIVE); URINE BLOOD NEGATIVE (NEGATIVE); URINE CLARITY SLIGHTY-CLOUDY (Clear); URINE COLOR YELLOW (YELLOW); URINE GLUCOSE (UA) >=500 mg/dL (Normal); URINE LEUKOCYTE ESTERASE NEG Leu/uL (Negative); URINE PROTEIN NEGATIVE (NEGATIVE)
[2018-02-13] MEDS ORDERED: Iohexol 300 100 ML IJ ONE (19:34)
[2018-02-13] MEDS ORDERED: Sodium Chloride 0.9% 50 ML IV ONE (19:34)
[2018-02-13] MEDS ORDERED: Insulin Regular 100 units/ml IV STA (21:35)
[2018-02-13] MEDS ORDERED: Insulin Regular 100 units/ml ONE (21:37)
[2018-02-13 22:49] VITALS: BP 134/68; PULSE 88; RESP 16; TEMP 98.2
[2018-02-13 23:36] VITALS: O2SAT 98
--- NOTE | 2018-02-14 10:19 | CT ---
Date of service: 02/13/2018 PROCEDURE: CT HEAD WITHOUT CONTRAST. HISTORY: head injury COMPARISON: Noncontrast head CT 04/24/2016. TECHNIQUE: Axial computed tomography images were obtained through the head/brain without intravenous contrast. Radiation dose: Total exam DLP = 666.83 mGy-cm. This CT exam was performed using one or more of the following dose reduction techniques: Automated exposure control, adjustment of the mA and/or kV according to patient size, and/or use of iterative reconstruction technique. FINDINGS: HEMORRHAGE: No intracranial hemorrhage. BRAIN: Normal weiner-white matter differentiation and density are appreciated throughout the cerebrum and cerebellum with the brainstem appearing unremarkable as well. There is no mass effect. There is no suspicious extra-axial fluid collection and the midline brain anatomy appears diffusely unremarkable. VENTRICLES: Unremarkable. No hydrocephalus. CALVARIUM: Unremarkable.No destructive bony lesion or displaced fracture identified including through the skullbase. PARANASAL SINUSES: Unremarkable as visualized. No significant inflammatory changes. MASTOID AIR CELLS: Unremarkable as visualized. No inflammatory changes. OTHER FINDINGS: None. IMPRESSION: Stable, unremarkable noncontrast head CT as compared to 05/04/2016 CT.
--- NOTE | 2018-02-14 10:21 | CT ---
Date of service: 02/13/2018 PROCEDURE: CT Cervical Spine without contrast HISTORY: neck pain s/p fall COMPARISON: None available. TECHNIQUE: Axial computed tomography images were obtained of the cervical spine without the use of intravenous contrast. Coronal and sagittal reformatted images were created and reviewed. Radiation dose: Total exam DLP = 380.40 mGy-cm. This CT exam was performed using one or more of the following dose reduction techniques: Automated exposure control, adjustment of the mA and/or kV according to patient size, and/or use of iterative reconstruction technique. FINDINGS: VERTEBRAE: No fracture. Normal alignment. No destructive bony lesion. DISCS/SPINAL CANAL/NEURAL FORAMINA: No significant central canal or neural foraminal stenosis. Discs heights are grossly preserved. Moderate C6-7 spondylosis appreciated. PARASPINAL SOFT TISSUES: Unremarkable. OTHER FINDINGS: None. IMPRESSION: No definite fracture or spondylolisthesis identified. Moderate C6-7 spondylosis identified. Concordant preliminary report from [facility], 02/13/2018.
--- NOTE | 2018-02-14 10:39 | CT ---
Date of service: 02/13/2018 PROCEDURE: CT Abdomen and Pelvis with contrast HISTORY: r/o diverticulitis COMPARISON: None. TECHNIQUE: Following the intravenous administration of iodinated contrast material, a CT examination of the abdomen and pelvis performed from the domes of the diaphragms to the symphysis pubis with reformatted datasets provided in axial, sagittal and coronal planes. Oral contrast was not administered as per referring physician request. Contrast dose: Omnipaque 300, 100.1 cc Radiation dose: Total exam DLP = 421.34 mGy-cm. This CT exam was performed using one or more of the following dose reduction techniques: Automated exposure control, adjustment of the mA and/or kV according to patient size, and/or use of iterative reconstruction technique. FINDINGS: LOWER THORAX: Small hiatal hernia is identified as well as prominent appearing cardiac size. No pleural or pericardial effusion. A 2.6 cm right epicardial cysts is identified once again. . LIVER: Cirrhotic liver is again identified without focal mass. No intrahepatic biliary dilatation identified. GALLBLADDER AND BILE DUCTS: Prior cholecystectomy reiterated. PANCREAS: Unremarkable. No gross lesion or ductal dilatation. SPLEEN: Remains upper limits normal size at 12.7 cm. ADRENALS: Unremarkable. No mass. KIDNEYS AND URETERS: Unremarkable. No hydronephrosis. No solid mass. VASCULATURE: Unremarkable. No aortic aneurysm. BOWEL: Stomach is distended with retained food. No definite bowel obstruction identified. Sigmoid diverticulosis identified with submitted with sigmoid colon appearing partially collapsed. Evaluation of the Shu wall is limited as result with segmental colitis difficult to completely exclude here. Clinically correlate further. The appearance is not dramatically changed in the interval nevertheless favoring stability rather than acute inflammation. APPENDIX: Not identified, potentially surgically absent. PERITONEUM: Unremarkable. No free fluid. No free air. LYMPH NODES: Unremarkable. No enlarged lymph nodes. BLADDER: Unremarkable. REPRODUCTIVE: Unremarkable. BONES: No acute fracture. OTHER FINDINGS: None. IMPRESSION: 1. Reiterated cirrhotic liver without focal mass appreciable. No definite intrahepatic biliary dilatation. 2. The spleen is upper limits normal size. 3. Limited sigmoid diverticulosis without definitive diverticulitis. Bowel collapse here limits evaluation of the sigmoid colon with colitis not favored as its appearance is similar. Clinically correlate nevertheless for potential colitis. 4. Prior cholecystectomy. Concordant preliminary report from [facility], 02/13/2018.
== END 2018-02-13 22:54 | disposition home or self-care (01) ==
LOC: H.ER 18:22
DX: S09.90XA Unspecified injury of head, initial encounter (principal); W19.XXXA Unspecified fall, initial encounter; Y92.89 Other specified places as the place of occurrence of the external cause; R10.9 Unspecified abdominal pain; R19.7 Diarrhea, unspecified; E11.65 Type 2 diabetes mellitus with hyperglycemia; Z79.4 Long term (current) use of insulin; E03.9 Hypothyroidism, unspecified; K74.60 Unspecified cirrhosis of liver
CPT/HCPCS: 70450; 72125; 74177; 80053; 81003; 82948; 83690; 85025; 96361; 96374; 96375; 99283; J2405; J7030; Q9966; Q9967